=== PATIENT | male | born 1965 ===

== ENCOUNTER 2025-02-04 07:05 | Day surgery (SDC) | payer OTHER ==
[2025-02-04] MEDS ORDERED: fentaNYL CITRATE 50 MCG/ML AMPUL IV PUSH ONE (09:30)
[2025-02-04] MEDS ORDERED: DIPHENHYDRAMINE HCL 50 MG/ML VIAL 1ML IV ONE (09:30)
[2025-02-04] MEDS ORDERED: MIDAZOLAM HCL 2 MG/2 ML VIAL IV ONE (09:30)
== END 2025-02-04 11:10 | disposition home or self-care (01) ==
LOC: AMB-ENDOS 07:05
PROVIDERS: ATTEND Colon & Rectal Surgery
DX: D12.0 Benign neoplasm of cecum (principal); D12.2 Benign neoplasm of ascending colon; K63.5 Polyp of colon; K57.30 Diverticulosis of large intestine without perforation or abscess without bleeding; Z88.6 Allergy status to analgesic agent